=== PATIENT | male | born 1935 | race Caucasian/White ===

== ENCOUNTER 2017-03-09 09:57 | Emergency (ER) | payer MEDICARE ==
[2017-03-09] MEDS ORDERED: HYDROmorphone HCL 1 MG/ML SYR ONE (10:29)
[2017-03-09] MEDS ORDERED: ONDANSETRON HCL 4 MG/2 ML VIAL ONE (10:29)
[2017-03-09 10:58] LABS: CALCIUM 9.6 mg/dL (8.4-10.2); CREATININE 1.3 mg/dL (0.7-1.3); POTASSIUM 4.7 mmol/L (3.5-5.1)
[2017-03-09 11:44] LABS: BASOPHILS 0.1 % (0.0-2.0); EOSINOPHILS 1.9 % (0.0-6.0); EOSINOPHILS# 0.1 X 10^3uL (0.0-0.4); HEMATOCRIT 41.5 % (42.0-54.0); HEMOGLOBIN 14.1 g/dL (14.0-18.0); LYMPHOCYTES 14.8 % (20.0-40.0); LYMPHOCYTES# 0.8 X 10^3uL (0.8-3.8); MEAN CELL VOLUME 92.8 fL (80.0-100.0); MEAN CORPUSCULAR HEMOGLOBIN 31.6 pg (29.0-35.0); MEAN PLATELET VOLUME 8.6 fL (7.4-10.4); MONOCYTES 9.5 % (2.0-10.0); MONOCYTES# 0.5 X 10^3uL (0.2-1.0); NEUTROPHILS 73.7 % (54.0-75.0); NEUTROPHILS# 4.2 X 10^3uL (2.6-6.7); RED BLOOD COUNT 4.48 X 10^6uL (4.20-6.10); RED CELL DISTRIBUTION WIDTH 12.6 % (11.5-14.5); WHITE BLOOD COUNT 5.6 X 10^3uL (3.9-10.7)
[2017-03-09 11:46] LABS: ALBUMIN 4.2 g/dL (3.5-5.0); BILIRUBIN, DIRECT 0.1 mg/dL (0.0-0.4); TOTAL PROTEIN 7.1 g/dL (6.3-8.2)
--- NOTE | 2017-03-09 11:54 | CT REPORT ---
HISTORY: Right flank pain. COMPARISON: 12/10/2016 TECHNIQUE: This examination was performed using automated exposure control, adjustment of mA or kV according to patient size, and/or use of iterative reconstruction technique. Axial contiguous images of the abdome n and pelvis were obtained without oral or IV contrast, coronal reformat images also performed. FINDINGS: LUNGS: The visualized lungs are clear. Hepatobiliary:No focal hepatic lesions are seen. The portal vein enhances normally. There is no intra hepatic biliary ductal dilatation. The gallbladder is incompletely distended with multiple calcified and noncalcified gallstones. Hepatic parenchyma is of diffusely decreased attenuation, stable, consis tent with moderate fatty infiltration. Spleen: Innumerable splenic calcifications are consistent with prior granulomatous disease, stable. T he spleen is normal in size. Pancreas: No focal pancreatic lesion or pancreatic ductal dilatation. Adrenals:Unremarkable. Kidneys: The kidneys are normal in size bilaterally. There is a single 5 mm calculus in the lower ana e calyces of left kidney. There are several left renal cortical cyst. There is no evidence of left-si ded hydronephrosis or ureteral calculus. There is mild right hydroureteronephrosis and asymmetric right perinephric and periureteral inflammat ory change. Within the wall the bladder, at the right ureterovesicular junction, best seen on image 1 13 of series 2, there is a 4 mm calcific density consistent with obstructing UVJ calculus. Peritoneum: There is no evidence of free fluid or free air. Vessels: Unremarkable. Lymph nodes: There is no lymphadenopathy. Bowel: The stomach is incompletely distended. The small bowel appears unremarkable. The appendix is w ell visualized and appears normal. There is well-formed stool throughout the colon. No focal bowel wa ll thickening is seen. There is diverticulosis of the descending colon without CT evidence of diverti culitis. Pelvis: The bladder appears unremarkable, without intraluminal mass or free intraluminal Cholelithiasis without CT evidence of cholecystitis. IMPRESSION: 4 mm right UVJ calculus with mild associated right hydroureteronephrosis. Nonobstructing left-sided nephrolithiasis. Fatty infiltration of the liver, which is a stable finding, and may reflect infectious, inflammatory or toxic/metabolic insult. Diverticulosis of the colon without CT evidence of diverticulitis. Findings consistent with prior granulomatous disease, stable. Final Electronic Signature: This report was electronically signed by Yossi Boles MD on 03/09/20 17 11:51 AM. paulino /
--- NOTE | 2017-03-09 13:43 | ER NURSING DOCUMENTATION ---
Nurse[facility] Name:Aj Schmid Age:81 yrs Sex:Male :1935 Arrival Date:03/09/2017 Time:09:57 Bed1 Private MD:Pee Ryan Diagnosis:Kidney Stone Presentation: 03/09 10:05 Acuity: JOSEMANUEL 3 rs 10:05 Presenting complaint: Patient states: Hx of kidney stones. Last was 4 years ago. Pain i rs right flank started at 5:30 am and woke him up. Denies f/c. Has had kidney stones in both sides. Transition of care: Home. Notified ED Physician of patient's arrival and CC Juan Murphy notified. 10:05 Method Of Arrival: Private Vehicle rs Triage Assessment: 10:27 General: Appears in no apparent distress, uncomfortable, well developed, well rs nourished, well groomed, Behavior is cooperative, pleasant. Pain: Complains of pain in right flank. Neuro: No deficits noted. Level of Consciousness is awake, alert, Oriented to person, place, time, event. Cardiovascular: No deficits noted. Capillary refill < 3 seconds Pulses are 3+ in left radial artery. Respiratory: No deficits noted. Respiratory effort is even, unlabored, Respiratory pattern is regular, symmetrical. GI: No deficits noted. Abdomen is obese, Bowel sounds present X 4 quads. Derm: No deficits noted. Skin is pink, warm & dry. Historical: - Allergies: No known drug Allergies; - PMHx: Suture Removal (October 22, 2015); SLEEP APNEA; HIGH CHOLESTEROL; Restless leg; Type II diabetes; Postural Syncope (October 17, 2015); Facial Laceration - 2 cm lengthSimple Closure (by )(October 17, 2015); Peripheral neuropathy; - PSHx: ortho repairs knees; Kidney stones; TONSILLECTOMY; - Tetanus: < 10 years. - Ebola Screening: : Patient negative for fever greater than or equal to 101.5 degrees Fahrenheit, and additional compatible Ebola Virus Disease symptoms. Patient denies exposure to infectious person. Patient denies travel to an Ebola-affected area in the 21 days before illness onset. No symptoms or risks identified at this time. . - Immunization history: Unable to Obtain. - Social history: Smoking status: Patient states was never smoker of tobacco. Screenin:20 Infectious Disease Risk None. Abuse screen: Denies threats or abuse. Nutritional rs screening: No deficits noted. Assessment: 10:49 Reassessment: Patient states feeling better. Patient states symptoms have improved. rs Vital Signs: 10:10 BP 164 / 82; Pulse 68; Resp 16; Temp 97.6; Pulse Ox 96% ; Weight 102.06 kg; Height 5 jt ft. 7 in. (170.18 cm); Pain 7/10; 10:10 Body Mass Index 35.24 (102.06 kg, 170.18 cm) jt ED Course: 09:59 Patient arrived in ED. jt 09:59 Pee Ryan MD is Private Physician. jt 10:05 Kiya Mahan RN is Primary Nurse. rs 10:12 Inserted peripheral IV: saline lock: 20 gauge in right antecubital area and blood jt collected. 10:14 Triage completed. rs 10:20 Notified ED Physician of patient's arrival and chief complaint. Dr. Martinez notified. Arm rs band placed on Bed in low position Call Light in Reach HOB Elevated Side rails up x1. Family accompanied patient. Labs ordered per protocol. Drawn by ED staff. 10:20 Door closed. Noise minimized. Lights dimmed. Verbal reassurance given. rs 10:26 Carlos Martinez MD is Attending Physician. jm 10:50 Valuables Remains with patient. Pulse Ox - RN Monitoring Only NIBP On - RN Monitoring rs Only. 11:[address] hz 11:[address] from [address]. hz 11:25 CAT SCAN; [place] [id number] In Process Unspecified. EDMS 11:55 Pee Ryan MD is Referral Physician. jm 11:55 Rommel Will MD is Referral Physician. jm 13:42 Discontinued IV intact, bleeding controlled, pressure dressing applied, No rs redness/swelling at site. Administered Medications: Completed: NS 0.9% 1000 ml IV at bolus once 10:20 Drug: NS 0.9% 1000 ml; Volume: 1000 ml; Route: IV; Rate: bolus; Site: right rs antecubital; Delivery: [place] Tubing; 13:25 Follow up: IV Status: Completed infusion; IV Intake: 1000ml rs 10:23 Drug: Zofran 4 mg; Route: IVP; Rate: 2 mg/min; Infused Over: 2 mins; Site: right rs antecubital; 10:25 Drug: Dilaudid 0.5 mg; Route: IVP; Rate: 0.25 mg/min; Infused Over: 2 mins; Site: right rs antecubital; 10:40 Drug: Dilaudid 0.5 mg; Route: IVP; Rate: 0.25 mg/min; Infused Over: 2 mins; Site: right rs antecubital; 13:26 Follow up: Response: Pain is decreased rs Intake: 13:25 IV: 1000ml; Total: 1000ml. rs Outcome: 11:55 Discharge ordered by . gordon 13:41 Discharged to home ambulatory. rs 13:41 Condition: improved 13:41 Discharge instructions given to patient, significant other, Instructed on discharge instructions, follow up and referral plans. medication usage, Demonstrated understanding of instructions, medications, Prescriptions given X 3. 13:41 IV D/Elvis 13:43 Patient left the ED. rs Signatures: Dispatcher [employer] Kiya Arreguin RN RN rs Meyer, John, MD MD jm Tennant, Joanne jt Zolnowski, Heather
--- NOTE | 2017-03-09 13:43 | ER PHYSICIAN DOCUMENTATION ---
Physician Documentation [facility] Name:Aj Schmid Age:81 yrs Sex:Male :1935 Arrival Date:03/09/2017 Time:09:57 Bed1 Private MD:Pee Ryan EDJuanCarlos Disposition: 03/09/17 11:55 Discharged to Home/Self Care. Impression: Kidney Stone. - Condition is Good. - Discharge Instructions: KIDNEY STONE w/ Colic. - Prescriptions for Percocet 5- 325 mg Oral Tablet - take 1 tablet by ORAL route every 6 hours As needed; 20 tablet. Flomax 0.4 mg Oral - take 1 capsule by ORAL route once daily 1/2 hour following the same meal each day; 15 capsule. Zofran 4 mg Oral Tablet - take 1-2 tablet by ORAL route every 4-6 hours As needed; 10 tablet. - Medical Reconciliation form form. - Follow up: Pee Ryan MD; When: 2 - 3 days; Reason: Continuance of care. Follow up: Rommel Will MD; When: As needed; Reason: Continuance of care. - Problem is new. - Symptoms have improved. HPI: 03/09 10:45 This 81 yrs old Male presents to ER with complaints of Flank Pain - RIGHT. jm 10:45 The patient complains of pain in the right mid back. The pain does not radiate. Onset: jm The symptom(s)/episode began/occurred today. Modifying factors: the symptoms are aggravated by nothing. Associated signs and symptoms: Pertinent positives: nausea. Severity of pain: At its worst the pain was a 8 / 10. The patient has experienced similar episodes in the past, and the symptoms today are exactly the same, to when the patient was apparently diagnosed with kidney stones. . The patient has not recently seen a physician. . Historical: - Allergies: No known drug Allergies; - PMHx: Suture Removal (October 22, 2015); SLEEP APNEA; HIGH CHOLESTEROL; Restless leg; Type II diabetes; Postural Syncope (October 17, 2015); Facial Laceration - 2 cm lengthSimple Closure (by )(October 17, 2015); Peripheral neuropathy; - PSHx: ortho repairs knees; Kidney stones; TONSILLECTOMY; - Tetanus: < 10 years. - Ebola Screening: : Patient negative for fever greater than or equal to 101.5 degrees Fahrenheit, and additional compatible Ebola Virus Disease symptoms. Patient denies exposure to infectious person. Patient denies travel to an Ebola-affected area in the 21 days before illness onset. No symptoms or risks identified at this time. . - Immunization history: Unable to Obtain. - Social history: Smoking status: Patient states was never smoker of tobacco. ROS: 11:39 Constitutional: Negative for fever, malaise. 11:39 Cardiovascular: Negative for chest pain, palpitations. 11:39 Respiratory: Negative for cough, shortness of breath. 11:39 Abdomen/GI: Positive for nausea, Negative for abdominal pain, vomiting, diarrhea. 11:39 Back: Positive for pain at rest, pain with movement. 11:39 : Positive for flank pain, Negative for urinary symptoms, urinary frequency, hematuria. 11:39 MS/extremity: Negative for paresthesias. 11:39 Neuro: Negative for dizziness, weakness. 11:39 All other systems are negative. Exam: 11:39 Constitutional: The patient appears alert, awake, comfortable. 12:24 ENT: Mouth: is normal, Voice: is normal. 12:24 Neck: Thyroid: appears normal, Trachea: is midline with no obvious abnormalities. 12:24 Cardiovascular: Rate: normal, Rhythm: regular. 12:24 Respiratory: Respirations: normal, Breath sounds: are normal. 12:24 Abdomen/GI: Bowel sounds: normal, Palpation: abdomen is soft and non-tender. 12:24 Back: pain, that is moderate, CVA tenderness, that is moderate. 12:24 : CVA tenderness, on the right, Bladder: is normal. 12:24 Neuro: Mentation: is normal, Memory: is normal. 12:24 Psych: Behavior/mood is pleasant, cooperative, Affect is calm. Vital Signs: 10:10 BP 164 / 82; Pulse 68; Resp 16; Temp 97.6; Pulse Ox 96% ; Weight 102.06 kg; Height 5 jt ft. 7 in. (170.18 cm); Pain 7/10; 10:10 Body Mass Index 35.24 (102.06 kg, 170.18 cm) jt MDM: 10:26 Patient medically screened. 12:23 Differential diagnosis: nephrolithiasis, pyelonephritis, ruptured AAA. Data reviewed: vital signs, nurses notes, old medical records, lab test result(s), radiologic studies, and as a result, I will discharge patient. Counseling: I had a detailed discussion with the patient and/or guardian regarding: the historical points, exam findings, and any diagnostic results supporting the discharge/admit diagnosis, lab results, radiology results, the need for outpatient follow up, with the patient's primary care provider, a urologist. Medication response: The patient's symptoms have improved, Dilaudid. ED course: 4mm non obstructing stone in the R UVJ. Pt feels much better will send home w Percocet, zofran, and flomax. Pt can f/u w Uro or PCP. . 03/09 11:00 Order name: BASIC METABOLIC PANEL; Complete Time: 14:13 EDMS 03/09 11:55 Order name: HEPATIC PANEL; Complete Time: 14:13 EDMS 03/09 11:55 Order name: LIPASE; Complete Time: 14:13 EDMS 03/09 11:56 Order name: CBC AUTO DIF, MDIF/RMOR IF IND; Complete Time: 14:13 EDMS 03/09 11:25 Order name: CAT SCAN; ABD/[place] [id number]; Complete Time: 14:13 EDMS 03/09 10:27 Order name: Pulse Ox Continuous; Complete Time: 10:59 Dispensed Medications: Completed: NS 0.9% 1000 ml IV at bolus once 10:20 Drug: NS 0.9% 1000 ml; Volume: 1000 ml; Route: IV; Rate: bolus; Site: right rs antecubital; Delivery: [place] Tubing; 13:25 Follow up: IV Status: Completed infusion; IV Intake: 1000ml rs 10:23 Drug: Zofran 4 mg; Route: IVP; Rate: 2 mg/min; Infused Over: 2 mins; Site: right rs antecubital; 10:25 Drug: Dilaudid 0.5 mg; Route: IVP; Rate: 0.25 mg/min; Infused Over: 2 mins; Site: right rs antecubital; 10:40 Drug: Dilaudid 0.5 mg; Route: IVP; Rate: 0.25 mg/min; Infused Over: 2 mins; Site: right rs antecubital; 13:26 Follow up: Response: Pain is decreased rs Signatures: Kiya Mahan, MARCY RN rs Carlos Martinez MD MD jm
[2017-03-09] MEDS ORDERED: ACETAMINOPHEN 325 MG TABLET PO ONE (13:50)
== END 2017-03-09 13:43 | disposition home or self-care (01) ==
LOC: ER 09:57
DX: N20.0 Calculus of kidney (principal); R11.0 Nausea; M54.89 Other dorsalgia; Z87.442 Personal history of urinary calculi; E11.9 Type 2 diabetes mellitus without complications
CPT/HCPCS: 74176; 80048; 80076; 83690; 85025; 96361; 96374; 96375; 99284; J1170; J2405